=== PATIENT | male | born 1945 | race Hispanic/Latino ===

== ENCOUNTER → 2017-09-25 | Outpatient (CLI) | payer OTHER ==
[~2017-09-25] MED LIST: ASPI-1181 PO; DILT120C10 PO; FENO145T37 PO; HYDR25TA PO; INSU100V12 SQ; JANUVIA PO; LOSA100T29 PO; MAPAP PO; METF10004 PO; RIVA20TA PO; SIMV80TA5 PO
[2017-09-25 15:21] LABS: CREATININE 1.4 mg/dL (0.5-1.5)
== END | disposition home or self-care (01) ==
LOC: LAB 14:43
PROVIDERS: ATTEND Internal Medicine Cardiovascular Disease
DX: I73.9 Peripheral vascular disease, unspecified (principal); I71.4 Abdominal aortic aneurysm, without rupture
CPT/HCPCS: 36415; 82565; 84520

== ENCOUNTER → 2017-10-05 | Outpatient (CLI) | payer OTHER ==
[~2017-10-05] MED LIST changes: +IOPAMIDOL-370 75 ML VIAL IV ONE; +ISOVUE-370 50ML VIAL IV ONE; -SIMV80TA5 PO; +SIMV80TA7 PO
== END | disposition home or self-care (01) ==
LOC: OIH 09-28 10:18
PROVIDERS: ATTEND Internal Medicine Cardiovascular Disease
DX: I71.4 Abdominal aortic aneurysm, without rupture (principal); I73.9 Peripheral vascular disease, unspecified; I21.9 Acute myocardial infarction, unspecified
CPT/HCPCS: 75635; Q9967 ×2

== ENCOUNTER → 2017-10-30 | Outpatient (CLI) | payer OTHER ==
[~2017-10-30] MED LIST changes: -IOPAMIDOL-370 75 ML VIAL IV ONE; -ISOVUE-370 50ML VIAL IV ONE; +REGADENOSON 0.4 MG/5 ML PF SYG IVP SCH
== END | disposition home or self-care (01) ==
LOC: SHCH 08:06 → EDSTATUS 08:30
PROVIDERS: ATTEND Internal Medicine Cardiovascular Disease
DX: I51.9 Heart disease, unspecified (principal); I10 Essential (primary) hypertension
CPT/HCPCS: 78452; 93017; 96374; A9500 ×2; J2785

== ENCOUNTER 2017-11-02 09:00 | Inpatient (IN) | payer OTHER ==
[~2017-11-02] VITALS: Ht 177.8 cm; Wt 91.2 kg
[2017-11-02 10:36] VITALS: BP 133/79
[2017-11-02 11:20] LABS: APPEARANCE,URINE Clear (CLEAR); BILIRUBIN,URINE Negative (NEGATIVE); COLOR,URINE Yellow (YELLOW); GLUCOSE, URINE (UA) 500 mg/dL (NEGATIVE); KETONES,URINE Negative (NEGATIVE); LEUKOCYTE ESTERASE ,URINE Negative (NEGATIVE); NITRATE,URINE Negative (NEGATIVE); OCCULT BLOOD,URINE Negative (NEGATIVE); PROTEIN,URINE POS 1+ (NEGATIVE)
[2017-11-02 11:32] LABS: POTASSIUM 3.9 mmol/L (3.5-5.1)
[2017-11-02 11:37] LABS: BASOPHILS % (AUTO) 0.8 % (0.0-5.0); EOSINOPHILS % (AUTO) 1.4 % (0.0-8.0); HEMATOCRIT 38.6 % (42-54); LYMPHOCYTES % (AUTO) 29.4 % (21.0-51.0); MEAN CORPUSCULAR HEMOGLOBIN 29.3 pg (27.0-33.0); MEAN CORPUSCULAR HGB CONC 33.9 g/dL (32.0-36.0); MEAN CORPUSCULAR VOLUME 86.4 fL (79-99); MONOCYTES % (AUTO) 7.2 % (3.0-13.0); NEUTROPHILS % (AUTO) 61.2 % (40.0-77.0); NUCLEATED RED BLOOD CELLS 0.1 % (0.0-0.19); PLATELET COUNT (AUTO) 220 K/uL (130-400); RED BLOOD CELL COUNT(AUTO) 4.47 MIL/uL (4.50-6.20); RED CELL DISTRIBUTION WIDTH 14.8 % (11.0-15.5); WHITE BLOOD COUNT (AUTO) 8.9 K/uL (4.8-10.8)
[2017-11-02 11:40] LABS: BACTERIA,URINE Rare /HPF (None Seen); RBC,URINE 0-1 /HPF (0-1); WBC,URINE 0-1 /HPF (0-1)
[2017-11-02 11:51] LABS: INR 1.21 (0.85-1.15); PARTIAL THROMBOPLASTIN TIME 33.5 SEC (26.3-35.5); PROTHROMBIN TIME 12.7 SEC (9.6-11.6)
[2017-11-02] MEDS ORDERED: RIVA20TA PO (12:18)
[2017-11-02] MEDS ORDERED: HYDR25TA PO (12:18)
[2017-11-02] MEDS ORDERED: METF10004 PO (12:18)
[2017-11-02] MEDS ORDERED: LOSA100T29 PO (12:18)
[2017-11-02] MEDS ORDERED: INSU100V12 SQ (12:18)
[2017-11-02] MEDS ORDERED: MAPAP PO (12:18)
[2017-11-02] MEDS ORDERED: ASPI-1181 PO (12:18)
[2017-11-02] MEDS ORDERED: JANUVIA PO (12:18)
[2017-11-02] MEDS ORDERED: DILT120C10 PO (12:18)
[2017-11-02] MEDS ORDERED: SIMV80TA7 PO (12:18)
[2017-11-02] MEDS ORDERED: FENO145T37 PO (12:18)
[2017-11-02] MEDS ORDERED: SODIUM CHLORIDE 0.9% 1000ML 1,000 ML IV SCH (13:15)
[2017-11-04] VITALS (25 sets, daily range): BP systolic 127–154; BP diastolic 58–80
[2017-11-04] MEDS ORDERED: CEFAZOLIN SODIUM 1 GM VIAL IVP SCH ×4 (06:00→23:45)
[2017-11-04] MEDS ORDERED: HEPARIN SODIUM 1000UNIT/ML 10ML VIAL ONE ×2 (06:43→07:00)
[2017-11-04] MEDS ORDERED: ISOVUE-300 100 ML VIAL IV ONE (06:44)
[2017-11-04] MEDS ORDERED: FENTANYL CITRATE PF 50 MCG/1 ML 5ML AMP IV ONE (06:58)
[2017-11-04] MEDS ORDERED: MIDAZOLAM HCL 1 MG/ML 2ML VIAL ONE (06:58)
[2017-11-04] MEDS ORDERED: PROPOFOL 10 MG/ML 20ML VIAL IV ONE ×2 (06:58→07:03)
[2017-11-04] MEDS ORDERED: ONDANSETRON HCL MDV 20ML 2 MG/ML VIAL ONE (07:00)
[2017-11-04] MEDS ORDERED: PHENYLEPHRINE HCL 10 MG/ML 1ML VIAL IV ONE (07:00)
[2017-11-04] MEDS ORDERED: ONDANSETRON HCL 4 MG/2 ML VIAL ONE (07:00)
[2017-11-04] MEDS ORDERED: SODIUM CHLORIDE 0.9% 10 ML VIAL ONE (07:00)
[2017-11-04] MEDS ORDERED: LIDOCAINE PF 2% 5ML ABBOJECT ONE ×2 (07:00→07:06)
[2017-11-04] MEDS ORDERED: NEOSTIGMINE 5MG/5ML SYR IV ONE (07:00)
[2017-11-04] MEDS ORDERED: SUCCINYLCHOLINE 200MG/10ML SYR ONE (07:01)
[2017-11-04] MEDS ORDERED: ROCURONIUM BROMIDE 10MG/1ML 5ML VL ONE ×2 (07:01→07:06)
[2017-11-04] MEDS ORDERED: EPHEDRINE SULFATE 50 MG/ML AMPULE ONE (07:02)
[2017-11-04] MEDS ORDERED: LIDOCAINE HCL 2% JELLY 5 ML ONE (07:06)
[2017-11-04] MEDS ORDERED: LIDOCAINE HCL MPF 1% 5ML VIAL ONE (07:06)
[2017-11-04] MEDS ORDERED: LIDOCAINE HCL 4% LTA SOL 4 ML VIAL ONE (07:06)
[2017-11-04] MEDS ORDERED: GLUCAGON 1MG KIT 1 MG ML IM PRN (09:15)
[2017-11-04] MEDS ORDERED: ACETAMINOPHEN 325 MG TAB PO PRN (09:15)
[2017-11-04] MEDS ORDERED: MORPHINE SULFATE 4 MG/1ML SYG IV PRN (09:15)
[2017-11-04] MEDS ORDERED: ACETAMINOPHEN-CODEINE 300/30MG TAB PO PRN (09:15)
[2017-11-04] MEDS ORDERED: DEXTROSE 50%-WATER 50 ML DISP.SYRIN IV PRN (09:15)
[2017-11-04] MEDS: SODIUM CHLORIDE 0.9% 1000ML 1,000 ML IV SCH ×2 (10:42→19:57)
[2017-11-04] MEDS: INSULIN HUMULIN R 100 UNIT/ML 3ML SQ SCH ×3 (12:10→20:31)
[2017-11-04] MEDS ORDERED: LIDOCAINE HCL 2% VISCOUS 30 ML, MAG HYDROX/AL HYDROX/SIMETH 30 ML, BELLADONNA-PHENOBARB... PO PRN ×3 (12:15)
[2017-11-04] MEDS ORDERED: CEFAZOLIN 1GM / D5W 50ML 50 ML IV SCH (15:45)
[2017-11-04] MEDS ORDERED: ONDANSETRON HCL MDV 20ML 2 MG/ML VIAL IVP PRN (17:00)
[2017-11-04] MEDS: FAMOTIDINE 20MG TAB 20 MG TAB PO SCH (20:29)
[2017-11-04] MEDS ORDERED: ATORVASTATIN CALCIUM 40 MG TABLET PO SCH (21:00)
[2017-11-04] MEDS ORDERED: LIDOCAINE HCL-MPF 1% 2ML VIAL IVP PRN (22:30)
[2017-11-04] MEDS ORDERED: POTASSIUM CHLORIDE 20MEQ/100ML 100 ML IV PRN (22:30)
[2017-11-04] MEDS ORDERED: POTASSIUM CHLORIDE 10% ELIXIR 20 MEQ/15 ML UDCUP PO PRN (22:30)
[2017-11-05] VITALS (12 sets, daily range): BP systolic 125–159; BP diastolic 69–79
[2017-11-05 03:59] LABS: HEMATOCRIT 34.4 % (42-54); MEAN CORPUSCULAR HEMOGLOBIN 29.3 pg (27.0-33.0); MEAN CORPUSCULAR HGB CONC 34.1 g/dL (32.0-36.0); MEAN CORPUSCULAR VOLUME 85.7 fL (79-99); PLATELET COUNT (AUTO) 183 K/uL (130-400); RED BLOOD CELL COUNT(AUTO) 4.01 MIL/uL (4.50-6.20); RED CELL DISTRIBUTION WIDTH 14.7 % (11.0-15.5); WHITE BLOOD COUNT (AUTO) 12.7 K/uL (4.8-10.8)
[2017-11-05 04:18] LABS: CREATININE 0.8 mg/dL (0.5-1.5); POTASSIUM 3.4 mmol/L (3.5-5.1)
[2017-11-05] MEDS: POTASSIUM CHLORIDE 20 MEQ ERTAB PO PRN ×2 (05:56→08:27)
[2017-11-05] MEDS ORDERED: CEFAZOLIN SODIUM 1 GM VIAL IVP SCH (06:00)
[2017-11-05] MEDS: INSULIN HUMULIN R 100 UNIT/ML 3ML SQ SCH (06:02)
[2017-11-05] MEDS ORDERED: INSULIN GLARGINE 100 UNITS/ML 10 ML VIAL SQ SCH (07:30)
[2017-11-05] MEDS ORDERED: LINAGLIPTIN 5 MG TABLET PO SCH (07:30)
[2017-11-05] MEDS: FAMOTIDINE 20MG TAB 20 MG TAB PO SCH (08:23)
[2017-11-05] MEDS ORDERED: DILTIAZEM HCL 120 MG CAP.SR.24H PO SCH (09:00)
[2017-11-05] MEDS ORDERED: ASPIRIN 81 MG EC TAB PO SCH (09:00)
[2017-11-05] MEDS ORDERED: LOSARTAN 100 MG TABLET PO SCH (09:00)
[2017-11-05] MEDS ORDERED: FENOFIBRATE NANOCRYSTALLIZED 145 MG TAB PO SCH (09:00)
[2017-11-05] MEDS ORDERED: HYDROCHLOROTHIAZIDE 25 MG TABLET PO SCH (09:00)
== END 2017-11-05 10:50 | disposition home or self-care (01) | DRG 269 ==
LOC: DAHIP 11-04 05:55 → EDSTATUS 11-04 09:00 → 2BH 11-04 09:20
PROVIDERS: ADMIT Internal Medicine; ATTEND Internal Medicine
PROC: B4101ZZ Fluoroscopy of Abdominal Aorta using Low Osmolar Contrast (ICD-10-PCS; principal; 2017-11-04)
PROC: 04V03DZ Restriction of Abdominal Aorta with Intraluminal Device, Percutaneous Approach (ICD-10-PCS; 2017-11-04)
PROC: B41D1ZZ Fluoroscopy of Aorta and Bilateral Lower Extremity Arteries using Low Osmolar Contrast (ICD-10-PCS; 2017-11-04)
DX: I71.4 Abdominal aortic aneurysm, without rupture (principal); E11.9 Type 2 diabetes mellitus without complications; E78.5 Hyperlipidemia, unspecified; I10 Essential (primary) hypertension; K21.9 Gastro-esophageal reflux disease without esophagitis; Z79.4 Long term (current) use of insulin; Z87.891 Personal history of nicotine dependence; Z80.9 Family history of malignant neoplasm, unspecified; Z82.49 Family history of ischemic heart disease and other diseases of the circulatory system; Z82.3 Family history of stroke
CPT/HCPCS: 34705; 34713; 36415; 71045; 80048; 81001; 82948; 85025; 85027; 85347; 85610; 85730; 86850; 86900; 86901; 86922; 93005; A4218; A4344; C1725; C1760; C1769; C1887; C1894; J0330; J0690; J1644; J1815; J2001; J2250; J2370; J2405; J2704; J2710; J3010; J3490; J7030; Q9967

== ENCOUNTER → 2017-12-02 | Outpatient (CLI) | payer OTHER ==
[~2017-12-02] MED LIST changes: +IOPAMIDOL-370 75 ML VIAL IV ONE; +ISOVUE-370 50ML VIAL IV ONE; -REGADENOSON 0.4 MG/5 ML PF SYG IVP SCH
== END | disposition home or self-care (01) ==
LOC: OIH 08:55
PROVIDERS: ATTEND Internal Medicine Cardiovascular Disease
DX: I71.4 Abdominal aortic aneurysm, without rupture (principal); I65.1 Occlusion and stenosis of basilar artery; I70.90 Unspecified atherosclerosis
CPT/HCPCS: 75635; Q9967 ×2

== ENCOUNTER → 2018-06-25 | Outpatient (CLI) | payer OTHER ==
[~2018-06-25] MED LIST changes: -IOPAMIDOL-370 75 ML VIAL IV ONE; -ISOVUE-370 50ML VIAL IV ONE; -LOSA100T29 PO; +LOSA100T58 PO; +METF-446 PO; -METF10004 PO; -SIMV80TA7 PO; +SIMV80TA91 PO
== END | disposition home or self-care (01) ==
LOC: SHCH 08:07
PROVIDERS: ATTEND Internal Medicine Cardiovascular Disease
DX: I71.4 Abdominal aortic aneurysm, without rupture (principal)
CPT/HCPCS: 93978